=== PATIENT | female | born 1940 | race Caucasian/White ===

== ENCOUNTER 2020-02-06 17:39 | Inpatient (IN) | payer MEDICARE, OTHER ==
[~2020-02-06] VITALS: Ht 162.6 cm; Wt 51.7 kg
--- NOTE | 2020-02-06 19:10 | NUR ---
GPS RN-NOTE:ADMISSION ADMITTED A 79-YR OLD FEMALE, FROM [facility]. ADMITTED ON 5150 FOR GD. PER HOLD, PT. CALLED 911 REQUESTED HELP COOKING AND CLEANING AND STATES SHE WAS UNABLE TO PERFORM THOSE TASKS ON HER OWN. PT. STATED SHE HAS NOT EATEN IN OVER 5 DAYS. PT. HAD SOME FOOD, BUT MOST WAS ROTTEN. KITCHEN WAS ALSO DIRTY AND HAD FECES AND MOLDS. UPON FACE TO FACE ASSESSMENT, PATIENT IS A/OX3, LABILE MOOD, ANXIOUS AND EASILY GETS IRRITABLE. AMBULATORY WITH ASSISTANCE. PT WAS ADVISED OF THE HOLD. PT'S RIGHTS HANDBOOK AND A GUIDE TO PRESCRIPTION MEDICATIONS GIVEN. IN NO APPARENT DISTRESS NOTED. BELONGINGS WERE INVENTORIED AND CHECKED FOR CONTRABAND. PT. IS UNDER THE PSYCHIATRIC CARE OF DR. BENIGNO BUSTOS, AND UNDER THE MEDICAL CARE OF CARMEN ROPER. SKIN BODY ASSESSMENT DONE. PT DENIES PAIN/ DISCOMFORT AT THIS TIME. BED LOCKED AND PLACED IN LOWEST POSITION TO MAINTAIN SAFETY. FALL PRECAUTIONS IMPLEMENTED. WILL CONTINUE TO MONITOR Q15 MINS. FOR SAFETY AND BEHAVIOR. Addendum: 02/07/20 at 0337 by JOSE MIGUEL CHEN RN PATIENT NOTED WITH HARD OF HEARING ON LEFT EAR. PT HAS NO HEARING AID. Addendum: 02/07/20 at 0519 by JOSE MIGUEL CHEN RN PT REFUSED TO TAKE OFF HER RINGS ON HER RIGHT FINGER. DESPITE OF EXPLANATION PROVIDED. Addendum: 02/07/20 at 0542 by JOSE MIGUEL CHEN RN RINGS KEPT BY THE PT.
[2020-02-06 20:00] VITALS: BP 94/61
[2020-02-06] MEDS ORDERED: DILT360C28 PO (20:25)
[2020-02-06] MEDS ORDERED: ATOR80TA PO (20:25)
[2020-02-06] MEDS ORDERED: MIRT30TA PO (20:25)
[2020-02-06] MEDS ORDERED: APIX5TAB PO (20:25)
[2020-02-06] MEDS ORDERED: LIDO30AD10 TP (20:25)
[2020-02-06] MEDS ORDERED: QUET25TA PO (20:25)
[2020-02-06] MEDS ORDERED: MAGNESIUM HYDROXIDE 30 ML UDC PO PRN (20:30)
[2020-02-06] MEDS ORDERED: MAG HYDROX/AL HYDROX/SIMETH 30 ML UDC PO PRN (20:30)
[2020-02-06] MEDS ORDERED: BLOOD SUGAR DIAGNOSTIC 1 EACH STRIP IN ONE (20:30)
[2020-02-06] MEDS ORDERED: CIPR-262 PO (20:34)
[2020-02-06] MEDS: ACETAMINOPHEN 325 MG TABLET PO PRN (20:36)
--- NOTE | 2020-02-06 20:36 | NUR ---
GPS-RN NOTE: PATIENT C/O LOWER BACK PAIN ON A PAIN SCALE OF 3/10. ADMINISTERED TYLENOL 650MG PO ORDERED PER PT'S REQUEST. WILL CONTINUE TO MONITOR FOR THE EFFECTIVENESS.
[2020-02-06 21:22] VITALS: BP 94/61
[2020-02-06] MEDS ORDERED: MIRTAZAPINE 15 MG TABLET PO STA (21:52)
[2020-02-06] MEDS ORDERED: MIRTAZAPINE 15 MG TABLET PO SCH (22:00)
--- NOTE | 2020-02-06 22:10 | NUR ---
GPS-RN NOTE: SEEN AND EXAMINED BY [employer]MATURE WINDER REPAIR HELPER SAMIR ROPER PATIENT'S BUMPED ON HER RIGHT UPPER LEG WITH NO NEW ORDER AT THIS TIME.
--- NOTE | 2020-02-06 23:15 | NUR ---
GPS-RN NOTE: NON-ADMINISTRATION OF REMERON DOSE AT 2200. REMERON 15MG PO GIVEN ONE TIME DOSE.
[2020-02-06] MEDS ORDERED: QUETIAPINE FUMARATE 25 MG TABLET PO SCH (23:30)
[2020-02-07 01:11] VITALS: BP 110/68
[2020-02-07] MEDS: LORAZEPAM 0.5 MG TABLET PO PRN ×3 (01:17→22:24)
[2020-02-07] MEDS ORDERED: Z GUARD REMEDY 2 OZ OINT TP PRN (02:30)
[2020-02-07 08:00] VITALS: BP 137/64
[2020-02-07] MEDS: LEVETIRACETAM (250 MG) 250 MG TABLET PO SCH ×4 (08:25→21:34)
[2020-02-07] MEDS: DILTIAZEM HCL CD 180 MG PO SCH (08:26)
[2020-02-07] MEDS: CIPROFLOXACIN HCL 500 MG TABLET PO SCH (08:26)
[2020-02-07] MEDS: APIXABAN 5 MG TABLET PO SCH ×3 (08:27→17:00)
[2020-02-07] MEDS: ACETAMINOPHEN 325 MG TABLET PO PRN ×2 (08:31→20:09)
[2020-02-07] MEDS: LIDOCAINE 5% (PATCH) 1 EA PATCH TP SCH (08:32)
--- NOTE | 2020-02-07 08:32 | NUR ---
RN NOTE:PATIENT C/O LOWER BACK PAIN ON A PAIN SCALE OF 5/10. ADMINISTERED TYLENOL 650MG PO ORDERED PER PT'S REQUEST. WILL CONTINUE TO MONITOR .
--- NOTE | 2020-02-07 13:38 | NUR ---
APS: RYAN received a call from [facility] APS director of social services Mynor Savanna [phone] informing SW pt has a current open case and is requesting discharge information. RYAN informed him that pt was just admitted and her case has not been discussed with MD so at this time there is no information to provide. RYAN stated that she would follow up once pt has been seen by both and RYAN.
--- NOTE | 2020-02-07 13:48 | NUR ---
RN NOTE:PATIENT C/O ANXIETY MEDICATED WITH ATIVAN 0.5MG PO X1,WILL CONTINUE TO MONITOR .
[2020-02-07 16:00] VITALS: BP 106/75
[2020-02-07 17:16] LABS: CHOLESTEROL 134 mg/dL (<200); HDL CHOLESTEROL 63 mg/dL (40-60); LDL 66 mg/dL (0-99); TRIGLYCERIDES 55 mg/dL (30-150)
[2020-02-07 17:17] LABS: ALBUMIN 3.9 g/dL (3.4-5.0); BILIRUBIN,TOTAL 0.4 mg/dL (0.2-1.0); CALCIUM, SERUM 9.2 mg/dL (8.5-10.1); CREATININE 0.9 mg/dL (0.6-1.3); POTASSIUM 4.1 mmol/L (3.5-5.1); TOTAL PROTEIN, SERUM 7.6 g/dL (6.4-8.2)
[2020-02-07 20:17] VITALS: BP 111/68
[2020-02-07] MEDS: TRAZODONE 50 MG TABLET PO SCH (21:34)
[2020-02-07] MEDS: ATORVASTATIN 40 MG TABLET PO SCH (21:38)
--- NOTE | 2020-02-07 21:50 | NUR ---
GPS-RN NOTE: MEDICATION REFUSAL PATIENT REFUSED SCHEDULED KEPPRA DOSE FOR TONIGHT. EDUCATED PATIENT REGARDING THE IMPORTANCE OF MEDICATION COMPLIANCE. PT CONTINUED TO REFUSE X3. WILL CONTINUE TO MONITOR.
[2020-02-07] MEDS ORDERED: MIRTAZAPINE 15 MG TABLET PO SCH (22:00)
--- NOTE | 2020-02-07 22:24 | NUR ---
GPS-RN NOTE: ANXIETY PATIENT C/O FEELING ANXIOUS. PT. REQUESTED FOR ATIVAN. ADMINISTERED ATIVAN 0.5MG PO ORDERED. WILL CONTINUE TO MONITOR FOR SAFETY.
[2020-02-08 08:00] VITALS: BP 128/71
[2020-02-08] MEDS: LIDOCAINE 5% (PATCH) 1 EA PATCH TP SCH (08:33)
[2020-02-08] MEDS: LEVETIRACETAM (250 MG) 250 MG TABLET PO SCH ×2 (08:35→21:20)
[2020-02-08] MEDS: DILTIAZEM HCL CD 180 MG PO SCH (08:35)
[2020-02-08] MEDS: CIPROFLOXACIN HCL 500 MG TABLET PO SCH (08:35)
[2020-02-08] MEDS: APIXABAN 5 MG TABLET PO SCH ×2 (08:46→16:28)
--- NOTE | 2020-02-08 11:13 | NUR ---
APS: RYAN contacted [facility] APS social work instructor Joey Savanna [phone] to discuss pts discharge plan. RYAN left a voicemail for callback.
--- NOTE | 2020-02-08 11:28 | NUR ---
FAMILY CONTACT: RYAN contacted pts grace Rapp ([phone]) for collateral information and discharge planning. Grace states that pt recently left AMA on 02/02/20 from [facility] Address: [address] [place] [id number] after pt had been there since August 2019 due to a fall and pt being unable to care for herself at home. Grace states that he has been involved with pts care for a year and since December 2019 he no longer makes himself responsible for pts care as pt is noncompliant and he lives in [place] and is unable to attend to pts needs. Grace has requested he not receive calls and only wants a call at the time of discharge. Grace has asked SW to coordinate with [facility] for collateral information and discharge planning. RYAN also informed him that pt has an open case with APS.
[2020-02-08 11:50] LABS: BASOPHILS # (AUTO) 0.1 /CMM (0.0-0.2); BASOPHILS % (AUTO) 1.2 % (0.0-2.0); EOSINOPHILS % (AUTO) 4.2 % (0.0-6.0); HEMATOCRIT 34 % (33-45); HEMOGLOBIN 10.7 g/dL (11.5-14.8); LYMPHOCYTES # (AUTO) 1.1 /CMM (0.8-4.8); LYMPHOCYTES % (AUTO) 22.4 % (20.0-44.0); MEAN CORPUSCULAR HGB CONC 31 g/dl (31.0-36.0); MEAN CORPUSCULAR VOLUME 87 fL (82-100); MONOCYTES # (AUTO) 0.8 /CMM (0.1-1.30); MONOCYTES % (AUTO) 15.6 % (2.0-12.0); NEUTROPHILS # (AUTO) 2.9 /CMM (1.8-8.9); NEUTROPHILS % (AUTO) 56.6 % (43.0-81.0); PLATELET COUNT (AUTO) 178 /CMM (150-450); RED BLOOD CELL COUNT(AUTO) 3.93 MIL/uL (4.0-5.2); WHITE BLOOD COUNT (AUTO) 5.1 K/uL (4.3-11.0)
[2020-02-08 12:26] LABS: CREATININE 0.9 mg/dL (0.6-1.3); PHOSPHORUS 3.7 mg/dL (2.5-4.9); POTASSIUM 4.1 mmol/L (3.5-5.1)
[2020-02-08] MEDS: ACETAMINOPHEN 325 MG TABLET PO PRN ×2 (12:55→20:23)
[2020-02-08 13:04] LABS: THYROID STIMULATING HORMONE 0.013 uIU/mL (0.358-3.74)
--- NOTE | 2020-02-08 13:55 | NUR ---
GROUP NOTE: SW encouraged pt to attend however, pt was unable to attend due to being on the phone speaking to APS.
--- NOTE | 2020-02-08 15:27 | NUR ---
INITIAL DISCHARGE PLAN: Per [facility] clinical social worker Joey Corrales [phone] and pts grace Rapp [phone] pt needs SNF placement and cannot return home as pt cannot care for herself. RYAN will help form a safe and proper discharge in collaboration with .
[2020-02-08 16:00] VITALS: BP 107/59
--- NOTE | 2020-02-08 16:08 | NUR ---
INDIVIDUAL NOTE: Pt is anxious and confused with labile mood. Pt keeps wanting to call various people to come pick her up. When explained by SW that she cannot leave as she is on a hold and cannot return home due to her inability to care for herself pt became agitated and told SW that it was none of her business who she called and also SW did not have the right to decide whether or not she could return home. Pt has impaired insight and judgement.
[2020-02-08] MEDS: LORAZEPAM 0.5 MG TABLET PO PRN (16:41)
--- NOTE | 2020-02-08 16:45 | NUR ---
RN GPS NOTE PATIENT STATED SHE WAS FEELING VERY ANXIOUS AND WANTED AN ATIVAN. ADMINISTERED ATIVAN 0.5MG PRN @1641. WILL CONTINUE TO MONITOR Q15MIN FOR SAFETY AND BEHAVIOR.
[2020-02-08 20:40] VITALS: BP 103/64
[2020-02-08] MEDS: TRAZODONE 50 MG TABLET PO SCH (21:20)
[2020-02-08] MEDS: ATORVASTATIN 40 MG TABLET PO SCH (21:25)
[2020-02-09] MEDS: LORAZEPAM 0.5 MG TABLET PO PRN ×4 (00:32→21:43)
[2020-02-09 08:00] VITALS: BP 114/78
[2020-02-09] MEDS: LEVETIRACETAM (250 MG) 250 MG TABLET PO SCH ×2 (08:51→21:13)
[2020-02-09] MEDS: DILTIAZEM HCL CD 180 MG PO SCH (08:51)
[2020-02-09] MEDS: APIXABAN 5 MG TABLET PO SCH ×2 (08:53→16:41)
[2020-02-09] MEDS: LIDOCAINE 5% (PATCH) 1 EA PATCH TP SCH (08:53)
[2020-02-09] MEDS ORDERED: risperiDONE 0.25 MG TABLET PO SCH (09:00)
[2020-02-09] MEDS: ACETAMINOPHEN 325 MG TABLET PO PRN ×2 (09:52→16:41)
--- NOTE | 2020-02-09 09:55 | NUR ---
GPS RN NOTE UPON CHECKING ON PATIENT SHE STATED "I AM FEELING VERY ANXIOUS AND MY BACK HURTS A LOT. I NEED TYLENOL AND ATIVAN". ADMINISTERED TYLENOL AND ATIVAN @ 0952. WILL REASSESS AND CONTINUE TO MONITOR Q15MIN FOR SAFETY AND BEHAVIOR.
--- NOTE | 2020-02-09 13:45 | NUR ---
RN-CO:Paged Dr Lion to obtain consent for Risperdal.
[2020-02-09 16:00] VITALS: BP 105/68
--- NOTE | 2020-02-09 16:47 | NUR ---
GPS RN NOTE PATIENT STATED "I AM HAVING NECK AND BACK PAIN AND I AM FEELING ANXIOUS. I WANT ATIVAN AND TYLENOL NOW". ADMINISTERED TYLENOL AND ATIVAN 0.5MG TAB PRN @16:41. WILL REASSESS AND MONITOR Q15MIN FOR SAFETY AND BEHAVIOR.
--- NOTE | 2020-02-09 18:25 | NUR ---
RN-CO: Patient was seen and examined by Dr Thomas
[2020-02-09 20:00] VITALS: BP 115/61
[2020-02-09] MEDS: TRAZODONE 50 MG TABLET PO SCH (21:13)
[2020-02-09] MEDS: ATORVASTATIN 40 MG TABLET PO SCH (21:14)
--- NOTE | 2020-02-09 21:43 | NUR ---
GPS RN NOTE: ANXIETY PT. C/O OF BEING ANXIOUS. ADMINISTERED ATIVAN 0.5 MG PO PRN ORDERED. WILL CONTINUE TO MONITOR FOR SAFETY AND BEHAVIOR
[2020-02-10] MEDS: ACETAMINOPHEN 325 MG TABLET PO PRN ×2 (00:36→11:15)
--- NOTE | 2020-02-10 00:36 | NUR ---
GPS RN NOTE: PAIN PT. C/O OF BACK PAIN AND REQUESTED TYLENOL. ADMINISTERED TYLENOL 650 MG PO PRN ORDERED. WILL CONTINUE TO MONITOR FOR SAFETY AND BEHAVIOR
[2020-02-10] MEDS: LORAZEPAM 0.5 MG TABLET PO PRN ×3 (04:53→22:12)
--- NOTE | 2020-02-10 04:53 | NUR ---
GPS RN NOTE: ANXIETY PT. C/O OF BEING ANXIOUS. ADMINISTERED ATIVAN 0.5 MG PO PRN ORDERED. WILL CONTINUE TO MONITOR FOR SAFETY AND BEHAVIOR
[2020-02-10 08:00] VITALS: BP 116/68
[2020-02-10] MEDS: APIXABAN 5 MG TABLET PO SCH ×2 (09:00→16:20)
[2020-02-10] MEDS: LIDOCAINE 5% (PATCH) 1 EA PATCH TP SCH (09:02)
[2020-02-10] MEDS: LEVETIRACETAM (250 MG) 250 MG TABLET PO SCH ×2 (09:03→21:18)
[2020-02-10] MEDS: DILTIAZEM HCL CD 180 MG PO SCH (09:03)
--- NOTE | 2020-02-10 11:16 | NUR ---
GPS RN NOTE: LOWER BACK PAIN PATIENT STATED "MY LOWER BACK HURTS REALLY BAD, I WANT TO GET TYLENOL" PATIENTS STATES PAIN IS A 9/10. ADMINISTERED TYLENOL 650MG @1115, WILL REASSESS AND CONTINUE TO MONITOR Q15 MIN FOR SAFETY AND BEHAVIOR.
--- NOTE | 2020-02-10 13:36 | NUR ---
GPS RN NOTE; ANXIETY PATIENT STATED SHE WAS FEELING ANXIOUS AND NEEDED AN ATIVAN. ASKED PATIENT WHAT CALMING TECHNIQUES HELP HER OTHER THAN MEDICATION AND SHE SAID RESTING. ENCOURAGED HER TO REST WELL ADMINISTERING ATIVAN 0.5MG TAB @ 1334. WILL REASSESS AND CONTINUE TO MONITOR Q15MIN FOR SAFETY AND BEHAVIOR.
--- NOTE | 2020-02-10 15:44 | NUR ---
GROUP NOTE: Pt refused to attend as she states she does not need therapy as she is "fine from my head." SW attempted to engage pt in individual therapy and pt was focused on her discharge home. SW stated that she is unable to care for herself and will have to go to a SNF. Pt became agitated and began posturing and pointing her finger at SW stating that she could not decide for her. Pts insight is impaired and mood is labile.
[2020-02-10 15:50] VITALS: BP 106/62
--- NOTE | 2020-02-10 16:20 | NUR ---
GPS RN NOTE AT 14:10 PATIENT WAS WALKING DOWN HALLWAY ON THE SIDE OF THE SHOWERS AND CONSTRUCTION DRIVER OPENED THE DOOR AND SLIGHTLY BUMPED THE PATIENT AND THEIR WALKER. PATIENT COMPLAINED OF NO PAIN AND A SKIN ASSESSMENT WAS DONE AND NO SIGN ON INJURY WAS NOTED. WILL CONTINUE TO MONITOR SITE AND PATIENT Q15MIN FOR SAFETY AND BEHAVIOR.
[2020-02-10 19:30] VITALS: BP 105/70
[2020-02-10] MEDS: TRAZODONE 50 MG TABLET PO SCH (21:18)
[2020-02-10] MEDS: ATORVASTATIN 40 MG TABLET PO SCH (21:18)
--- NOTE | 2020-02-10 22:13 | NUR ---
GPS RN NOTE: ANXIETY PT. C/O OF BEING ANXIOUS. ADMINISTERED ATIVAN 0.5 MG PO PRN ORDERED. WILL CONTINUE TO MONITOR FOR SAFETY AND BEHAVIOR
[2020-02-11] MEDS: LORAZEPAM 0.5 MG TABLET PO PRN ×3 (06:38→22:04)
--- NOTE | 2020-02-11 06:38 | NUR ---
GPS-RN NOTE: ANXIETY PATIENT C/O FEELING ANXIOUS. PT REQUESTED FOR ATIVAN. V/S STABLE. PRN ATIVAN 0.5MG PO GIVEN. WILL CONTINUE TO MONITOR FOR SAFETY.
[2020-02-11 06:40] VITALS: BP 113/75
[2020-02-11 08:00] VITALS: BP 122/70
[2020-02-11] MEDS: LEVETIRACETAM (250 MG) 250 MG TABLET PO SCH ×2 (08:53→21:08)
[2020-02-11] MEDS: LIDOCAINE 5% (PATCH) 1 EA PATCH TP SCH (08:53)
[2020-02-11] MEDS: DILTIAZEM HCL CD 180 MG PO SCH (08:57)
[2020-02-11] MEDS: APIXABAN 5 MG TABLET PO SCH ×2 (09:00→16:51)
--- NOTE | 2020-02-11 09:00 | NUR ---
RN NOTE- A/O 3 PATIENT IS NEEDY, GUARDED, LABILE MOOD, COOPERATIVE. PATIENT BECOMES AGITATED WHEN SHE DOES NOT RECIEVE WHAT SHE WANTS. MED COMPLAINT, NO SIGNS OF DISTRESS, NO PAIN. WILL CONTINUE TO MONITOR Q15 MIN FOR SAFETY AND BEHAVIOR.
--- NOTE | 2020-02-11 09:04 | NUR ---
SNF REFERRAL: RYAN faxed SNF referral to [facility] ([facility]) [id number] [place] [address] P: [phone].
--- NOTE | 2020-02-11 09:23 | NUR ---
SNF REFERRAL: SW faxed SNF referral to [facility] ([facility]) Address: [address] [place] [address] for review.
--- NOTE | 2020-02-11 09:23 | NUR ---
SNF REFERRAL: RYAN faxed SNF referral to [facility] Address: [address] [facility], [place] [address] for review.
[2020-02-11] MEDS: ACETAMINOPHEN 325 MG TABLET PO PRN (10:32)
--- NOTE | 2020-02-11 10:32 | NUR ---
RN NOTE- PT COMPLAIN OF PAIN 6-10 TYLENOL 650MG GIVEN
--- NOTE | 2020-02-11 10:55 | NUR ---
SNF CONTACT: SW received a call from katelyn Campbell at [facility] ([facility]) Address: [address] [place] [address] stating pt has been accepted to the facility.
--- NOTE | 2020-02-11 10:57 | NUR ---
SNF CONTACT: SW received a call from katelyn Jovel at [facility] Address: [address] [place] [address] stating pt has been accepted to the facility.
--- NOTE | 2020-02-11 11:09 | NUR ---
INDIVIDUAL NOTE: SW provided intervention to pt regarding her discharge, SW informed pt that she will be discharged to a SNF and explained her insurance benefits and coverage. Pt became easily agitated and stated she did not want to go to a SNF. Pt has impaired insight and unable to comprehend the information given to her.
--- NOTE | 2020-02-11 11:39 | NUR ---
SNF REFERRAL: SW faxed SNF referral to [facility] (SNF) Address: [facility] [place] [address] for review.
[2020-02-11] MEDS ORDERED: clonazePAM 0.5 MG TABLET PO SCH (13:00)
--- NOTE | 2020-02-11 14:03 | NUR ---
RN NOTE- ANXIETY/ PT RESTLESS ANXIOUS. ATIVAN 0.5 MG GIVEN
--- NOTE | 2020-02-11 14:46 | NUR ---
SNF CONTACT: SW received a call from katelyn Staley at [facility] ([facility]) Address: [facility] [place] [address] stating pt has been accepted to the facility.
--- NOTE | 2020-02-11 15:30 | NUR ---
RN NOTE- ATTEMPTED COVID TESTING W PATIENT FOR FUTURE PLACEMENT. PT REFUSED TEST STATING "I AM NOT DOING THE STUPID TEST UNTIL I GET TO GO HOME." RYAN LEYVA ATTEMPTED REASONING W PT TO NO AVAIL. COVID TEST REFUSED.
--- NOTE | 2020-02-11 15:32 | NUR ---
INDIVIDUAL INTERVENTION: Pt refused to take COVID test for placement stating, "I'm not taking the test because I am going home." Pts mood is labile and becomes easily agitated. Pt is unable to care for herself and unable to return home.
[2020-02-11 16:00] VITALS: BP 118/68
[2020-02-11] MEDS: clonazePAM 0.5 MG TABLET PO SCH (16:52)
[2020-02-11] MEDS: TRAZODONE 50 MG TABLET PO SCH (21:08)
[2020-02-11] MEDS: ATORVASTATIN 40 MG TABLET PO SCH (21:08)
--- NOTE | 2020-02-11 22:04 | NUR ---
GPS RN NOTE: ANXIETY PT. C/O OF BEING ANXIOUS. ADMINISTERED ATIVAN 0.5 MG PO PRN ORDERED. WILL CONTINUE TO MONITOR FOR SAFETY AND BEHAVIOR.
[2020-02-12 08:00] VITALS: BP 108/72
[2020-02-12] MEDS: LEVETIRACETAM (250 MG) 250 MG TABLET PO SCH ×2 (08:15→21:40)
[2020-02-12] MEDS: LIDOCAINE 5% (PATCH) 1 EA PATCH TP SCH (08:16)
[2020-02-12] MEDS: DILTIAZEM HCL CD 180 MG PO SCH (08:16)
[2020-02-12] MEDS: clonazePAM 0.5 MG TABLET PO SCH (08:34)
--- NOTE | 2020-02-12 08:35 | NUR ---
GPS/RN PT REFUSED ELOQUIS AND KLONOPIN OFFERED X3
[2020-02-12] MEDS: APIXABAN 5 MG TABLET PO SCH ×2 (08:58→17:00)
[2020-02-12] MEDS: LORAZEPAM 0.5 MG TABLET PO PRN ×2 (08:59→16:19)
[2020-02-12 16:00] VITALS: BP 111/68
--- NOTE | 2020-02-12 16:21 | NUR ---
GPS/RN ATIVAN 0.5MG PO ADMINISTERED FOR ANXIETY
[2020-02-12 20:08] VITALS: BP 116/65
[2020-02-12] MEDS: TRAZODONE 50 MG TABLET PO SCH (21:40)
[2020-02-12] MEDS: ATORVASTATIN 40 MG TABLET PO SCH (21:40)
[2020-02-13] MEDS: ACETAMINOPHEN 325 MG TABLET PO PRN ×2 (01:24→17:37)
[2020-02-13] MEDS: LORAZEPAM 0.5 MG TABLET PO PRN ×3 (01:24→19:16)
--- NOTE | 2020-02-13 01:24 | NUR ---
GPS RN NOTE: PAIN PT. C/O OF BACK PAIN AND REQUESTED TYLENOL. ADMINISTERED TYLENOL 650 MG PO PRN ORDERED. WILL CONTINUE TO MONITOR FOR SAFETY AND BEHAVIOR.
--- NOTE | 2020-02-13 01:24 | NUR ---
GPS RN NOTE: ANXIETY PT. C/O OF BEING ANXIOUS. ADMINISTERED ATIVAN 0.5 MG PO PRN ORDERED. WILL CONTINUE TO MONITOR FOR SAFETY AND BEHAVIOR
[2020-02-13 08:00] VITALS: BP 122/72
[2020-02-13] MEDS: APIXABAN 5 MG TABLET PO SCH ×2 (08:37→17:00)
[2020-02-13] MEDS: LEVETIRACETAM (250 MG) 250 MG TABLET PO SCH ×2 (08:43→20:37)
[2020-02-13] MEDS: DILTIAZEM HCL CD 180 MG PO SCH (08:44)
[2020-02-13] MEDS: LIDOCAINE 5% (PATCH) 1 EA PATCH TP SCH (08:44)
[2020-02-13 16:00] VITALS: BP 103/66
--- NOTE | 2020-02-13 19:16 | NUR ---
GPS RN NOTE: ANXIETY PATIENT VERBALIZED THAT SHE IS ANXIOUS, RESTLESS, REQUESTED TO GET ATIVAN AT THIS TIME. PRN ATIVAN 0.5 MG 1 TAB PO GIVEN ORDERED. WILL CONTINUE TO MONITOR FOR EFFECTIVENESS.
[2020-02-13 19:29] VITALS: BP 106/69
[2020-02-13] MEDS: ATORVASTATIN 40 MG TABLET PO SCH (21:57)
[2020-02-13] MEDS: TRAZODONE 50 MG TABLET PO SCH (21:57)
[2020-02-14] MEDS: LORAZEPAM 0.5 MG TABLET PO PRN ×4 (02:35→22:12)
--- NOTE | 2020-02-14 02:35 | NUR ---
GPS RN NOTE: ANXIETY PATIENT VERBALIZED THAT SHE IS FEELING ANXIOUS & RESTLESS & REQUESTED TO TAKE ATIVAN. PRN ATIVAN 0.5 MG GIVEN SCHEDULED. CONTINUING TO MONITOR.
--- NOTE | 2020-02-14 06:52 | NUR ---
GPS RN NOTE PATIENT IS SOUND ASLEEP AT THIS TIME. INDUSTRIAL CLEANING TECHNICIAN HERE TO DRAW BLOOD, BUT PATIENT VERBALIZED EARLIER NOT TO BE BOTHERED IF ASLEEP. INFORMED TYLER, INDUSTRIAL CLEANING TECHNICIAN & REQUESTED TO COME BACK AT 0800. TYLER STATED THAT SHE WILL INFORM AM INDUSTRIAL CLEANING TECHNICIAN TO COME AGAIN TO DRAW BLOOD.
[2020-02-14 08:00] VITALS: BP 119/69
[2020-02-14] MEDS: LIDOCAINE 5% (PATCH) 1 EA PATCH TP SCH (08:09)
[2020-02-14] MEDS: DILTIAZEM HCL CD 180 MG PO SCH (08:11)
[2020-02-14] MEDS: LEVETIRACETAM (250 MG) 250 MG TABLET PO SCH ×2 (08:11→21:12)
[2020-02-14] MEDS: APIXABAN 5 MG TABLET PO SCH ×2 (09:00→17:00)
[2020-02-14] MEDS: ACETAMINOPHEN 325 MG TABLET PO PRN ×2 (09:37→19:53)
--- NOTE | 2020-02-14 09:38 | NUR ---
rn notes refused eliquis. expained risk and benefits but still refused. offered 3x.
--- NOTE | 2020-02-14 10:44 | NUR ---
APS: RYAN contacted [facility] APS social work administrator Joeyyumiko Corrales [phone] to discuss pts discharge plan. SW left a voicemail for callback informing him that pt is refusing placement and refusing to get a COVID test therefore all the facilities she has been accepted to will not accept without a COVID test.
--- NOTE | 2020-02-14 10:48 | NUR ---
rn notes patient anxious and asking for ativan. ativan 0.5mg given as ordered. Addendum: 02/14/20 at 1144 by DINA ALVAREZ ativan 0.5mg fell on the floor. had to waste it. waste witness by EZE Weinstein. Informed Indira Pharmcist, per Indira just pulled out another one and waste the previous one in the omnicell. Addendum: 02/14/20 at 1146 by DINA ALVAREZ pulled new ativan 0.5mg and administered as ordered
--- NOTE | 2020-02-14 11:00 | NUR ---
APS: SW received a call from [facility] APS social service manager Mynor Corrales [phone] stating that he will try to convince pt to take COVID test and accept SNF placement. He states that if pt refuses then APS will move forward with filing for conservatorship.
--- NOTE | 2020-02-14 11:15 | NUR ---
APS: SW received a call from [facility] APS social media community manager Mynor Corrales [phone] requesting SW to re-explain pts SNF options. He states that if pt refuses SNF placement then he will proceed with filing for conservatorship.
--- NOTE | 2020-02-14 11:25 | NUR ---
INDIVIDUAL INTERVENTION: SW wrote a yves for the pt explaining her SNF options and discharge plan as pt is heard of hearing and her insight is limited. the yves reads the following: You have been accepted to 3 nursing homes: 1.[facility] Address: [address] [place] [address] [address] Lion (your current psychiatrist goes to this facility and he will continue to see you there) 2.[facility] Address: [address] [place] [address] 3.[facility] Address: [address] [place] [address] Above are the 3 long term facilities that have accepted you. They all require you to take a COVID test for admission. You will be there for 1 month and Medicare will cover for it. After that a hospital social worker at the facility will work with social nito Cook with Adult Protective Services and they will help you find a permanent home that will provide you with the assistance you need. You cannot return home as you are unable to care for yourself. If you refuse to go to a long term facility then Adult Protective Services will intervene and file for conservatorship which means you will lose all your rights and the [facility] will become your legal guardian and make decisions for you. Please choose what facility who would like to go to.
--- NOTE | 2020-02-14 12:26 | NUR ---
INDIVIDUAL INTERVENTION: SW spoke with pt regarding the SNF options she was given, pt was agitated and stated she will make a decision soon then stated that SW should have not written that she is unable to care for herself. SW stated that she is unable to safely care for herself at home and reminded pt of reason for psychiatric hold and hospitalization. Pt became agitated and began pointing her finger at SW stating that no one can tell her what to do. Pts insight is impaired and has not insight into her mental illness.
[2020-02-14 16:00] VITALS: BP 99/61
--- NOTE | 2020-02-14 17:05 | NUR ---
rn notes refused eliquis. expained risk and benefits but still refused. offered 3x.
--- NOTE | 2020-02-14 19:53 | NUR ---
GPS RN NOTE: HEADACHE PT. C/O OF HEADACHE AND REQUESTED TYLENOL. ADMINISTERED TYLENOL 650 MG PO PRN ORDERED. WILL CONTINUE TO MONITOR FOR SAFETY AND BEHAVIOR
[2020-02-14 20:14] VITALS: BP 107/66
[2020-02-14] MEDS: ATORVASTATIN 40 MG TABLET PO SCH (21:13)
[2020-02-14] MEDS: TRAZODONE 50 MG TABLET PO SCH (21:13)
--- NOTE | 2020-02-14 22:12 | NUR ---
GPS RN NOTE: ANXIETY PT. C/O OF BEING ANXIOUS. ADMINISTERED ATIVAN 0.5 MG PO PRN ORDERED. WILL CONTINUE TO MONITOR FOR SAFETY AND BEHAVIOR
[2020-02-14 23:03] LABS: BASOPHILS # (AUTO) 0.2 /CMM (0.0-0.2); BASOPHILS % (AUTO) 2.4 % (0.0-2.0); EOSINOPHILS % (AUTO) 3.9 % (0.0-6.0); HEMATOCRIT 28 % (33-45); HEMOGLOBIN 8.9 g/dL (11.5-14.8); LYMPHOCYTES # (AUTO) 1.3 /CMM (0.8-4.8); LYMPHOCYTES % (AUTO) 19.9 % (20.0-44.0); MEAN CORPUSCULAR HGB CONC 32 g/dl (31.0-36.0); MEAN CORPUSCULAR VOLUME 85 fL (82-100); MONOCYTES # (AUTO) 0.9 /CMM (0.1-1.30); MONOCYTES % (AUTO) 13.2 % (2.0-12.0); NEUTROPHILS % (AUTO) 60.6 % (43.0-81.0); PLATELET COUNT (AUTO) 126 /CMM (150-450); WHITE BLOOD COUNT (AUTO) 6.5 K/uL (4.3-11.0)
[2020-02-14 23:20] LABS: ALANINE AMINOTRANSFERASE 30 U/L (12-78); ALBUMIN 3.3 g/dL (3.4-5.0); ALKALINE PHOSPHATASE 115 U/L (46-116); ASPARTATE AMINOTRANSFERASE 24 U/L (15-37); BILIRUBIN,TOTAL 0.3 mg/dL (0.2-1.0); CALCIUM, SERUM 8.6 mg/dL (8.5-10.1); CARBON DIOXIDE 27 mmol/L (21-32); CHLORIDE 103 mmol/L (98-107); CREATININE 0.8 mg/dL (0.6-1.3); GLUCOSE 127 mg/dL (74-106); PHOSPHORUS 4.3 mg/dL (2.5-4.9); SODIUM SERUM 136 mmol/L (136-145); TOTAL PROTEIN, SERUM 6.5 g/dL (6.4-8.2); UREA NITROGEN, BLOOD 34 mg/dL (7-18)
[2020-02-15] MEDS: ACETAMINOPHEN 325 MG TABLET PO PRN ×2 (01:41→13:10)
--- NOTE | 2020-02-15 01:41 | NUR ---
GPS RN NOTE: HEADACHE PT. C/O OF HEADACHE AND REQUESTED TYLENOL. ADMINISTERED TYLENOL 650 MG PO PRN ORDERED. WILL CONTINUE TO MONITOR FOR SAFETY AND BEHAVIOR
[2020-02-15] MEDS: LORAZEPAM 0.5 MG TABLET PO PRN ×3 (04:36→23:02)
--- NOTE | 2020-02-15 04:36 | NUR ---
GPS RN NOTE: ANXIETY PT. C/O OF BEING ANXIOUS. ADMINISTERED ATIVAN 0.5 MG PO PRN ORDERED. WILL CONTINUE TO MONITOR FOR SAFETY AND BEHAVIOR
[2020-02-15 08:00] VITALS: BP 121/74
[2020-02-15] MEDS: DILTIAZEM HCL CD 180 MG PO SCH (08:07)
[2020-02-15] MEDS: LIDOCAINE 5% (PATCH) 1 EA PATCH TP SCH (08:08)
[2020-02-15] MEDS: APIXABAN 5 MG TABLET PO SCH ×2 (08:08→16:57)
[2020-02-15] MEDS: LEVETIRACETAM (250 MG) 250 MG TABLET PO SCH ×2 (08:08→21:11)
--- NOTE | 2020-02-15 08:17 | NUR ---
RN NOTE- HGB 8.9, BUN 34. DR CUELLAR NOTIFIED . PUSHING FLUIDS. AWAITING ORDERS
--- NOTE | 2020-02-15 09:00 | NUR ---
RN NOTE- PT QUIET WITHDRAWN IN BED MED COMPLIANT EXCEPT FOR ELIQUIS STATES'MAKES MY GUMS BLEED' CALM DIRECTABLE DENYING SI HI AH VH. BUN [address] CUELLAR NOTIFIED. PUSHING FLUIDS. ENCOURAGING INTAKE
--- NOTE | 2020-02-15 11:00 | NUR ---
INDIVIDUAL INTERVENTION: SW spoke with pt regarding the SNF options she was given, pt was agitated and stated that she will not go to a SNF.
--- NOTE | 2020-02-15 13:09 | NUR ---
APS: RYAN contacted [facility] APS social media editor Joey Corrales [phone] and left a voicemail informing him pt will be discharged tomorrow Friday02/16/20 back home as pt has refused SNF placement. RYAN requested a call back.
--- NOTE | 2020-02-15 13:10 | NUR ---
RN NOTE- PT C/O HEADACHE AND RESTLESSNESS. VS STABLE. HR - 76/M B/P- 136/68. ATIVAN 0.5 MG GIVEN, TYLENOL 650 MG GIVEN
--- NOTE | 2020-02-15 13:51 | NUR ---
RN NOTE- DR CUELLAR TO UNIT. AWARE OF LABS. INCREASE FLUID INTAKE PER ORDERS. ENCOURAGING PT TO DRINK.
--- NOTE | 2020-02-15 15:48 | NUR ---
INDIVIDUAL INTERVENTION: SW discussed placement with pt and pt agreed to take COVID test for placement. Pt states she wishes to be discharged to [facility]. SW informed RN so that COVID screening can be done on this present day.
--- NOTE | 2020-02-15 15:51 | NUR ---
APS: RYAN contacted [facility] APS social human services assistants Joey Corrales [phone] and left a voicemail informing him pt agreed to take COVID test for placement.
--- NOTE | 2020-02-15 15:57 | NUR ---
SNF REFERRAL: RYAN faxed SNF referral to [facility] Address: [address], [place] [address] for review.
[2020-02-15 16:00] VITALS: BP 111/61
--- NOTE | 2020-02-15 16:57 | NUR ---
RN NOTE: PT REFUSED 1700 ELIQUIS DOSE
--- NOTE | 2020-02-15 18:30 | NUR ---
RN NOTE- LAB PHONED UNIT. PTS COVID TEST DONE EARLIER TODAY FOR PLACEMENT WAS NEGATIVE
[2020-02-15 20:07] VITALS: BP 109/67
[2020-02-15] MEDS: ATORVASTATIN 40 MG TABLET PO SCH (21:42)
[2020-02-15] MEDS: TRAZODONE 50 MG TABLET PO SCH (21:43)
--- NOTE | 2020-02-15 23:04 | NUR ---
RN NOTES: ANXIETY PT. C/O FEELING ANXIOUS REQUESTING PRN, ATIVAN 0.5 MG PO PRN GIVEN PER PT. REQUEST , WILL CONTINUE TO MONITOR.
--- NOTE | 2020-02-16 07:30 | NUR ---
RN NOTE- ANXIETY. REQUESTED PRN. ATIVAN 0.5 MG GIVEN
[2020-02-16] MEDS: LORAZEPAM 0.5 MG TABLET PO PRN (07:32)
[2020-02-16 08:00] VITALS: BP 111/58
[2020-02-16] MEDS: LIDOCAINE 5% (PATCH) 1 EA PATCH TP SCH (08:25)
[2020-02-16] MEDS: LEVETIRACETAM (250 MG) 250 MG TABLET PO SCH (08:25)
[2020-02-16 08:26] VITALS: BP 111/58
[2020-02-16] MEDS: APIXABAN 5 MG TABLET PO SCH (08:26)
[2020-02-16] MEDS: DILTIAZEM HCL CD 180 MG PO SCH (08:26)
--- NOTE | 2020-02-16 08:38 | NUR ---
APS: RYAN contacted [facility] APS social sciences professor Joey Savanna [phone] and left a voicemail informing him pt is refusing to be discharged to a SNF. RYAN informed him that pt will be discharged today back home via taxi.
--- NOTE | 2020-02-16 08:42 | NUR ---
APS: RYAN received a call from APS psych social worker Joey Corrales [phone] agreeing with discharge plan. He states he will proceed with filing for conservatorship for pt.
--- NOTE | 2020-02-16 09:00 | NUR ---
RN NOTE- PT OPPOSITIONAL AT TIMES FREQUENT C/O ANXIETY, NOISE, FOOD, HER UPCOMING DC PLACEMENT ETC. ATIVAN GIVEN FOR RESTLESSNESS EARLY IN SHIFT PO INTAKE POOR AT TIMES, INCREASED FLUID INTAKE BUN STILL HIGH. REFUSING ELIQUIS OTHERWISE MED COMPLIANT DENIES ALL
--- NOTE | 2020-02-16 09:14 | NUR ---
INDIVIDUAL INTERVENTION: SW spoke with pt regarding a safe discharge plan, SW explained to pt that she is unable to to care for herself and stated that if she returns home she may lose her rights as APS will pursue conservatorship. After much persuasion pt agreed to go to [facility].
--- NOTE | 2020-02-16 09:16 | NUR ---
APS: RYAN contacted [facility] APS social media editor Joey Corrales [phone] and left a voicemail informing him pt agreed to go to a SNF.
--- NOTE | 2020-02-16 09:31 | NUR ---
DISCHARGE NOTE: Pt will be discharging at 12:30pm via [facility] to [facility] Address: [address] [place] [address] . APS socially responsible investment adviser Joey Corrales [phone] has been notified. Pts mood is anxious with congruent affect. Pt denies visual/auditory hallucinations and denies suicidal/homicidal ideation. Pt will be under the care of Psychiatrist: Dr. Rodriguez Address: [address] [place] [address] and Digital Product Specialist: Dr Diop Address: [address] [place] [address] . The multidisciplinary exit care form was done, printed, signed, and given to the patient.
[2020-02-16] MEDS: ACETAMINOPHEN 325 MG TABLET PO PRN (10:22)
--- NOTE | 2020-02-16 10:22 | NUR ---
RN NOTE- PT C/O PAIN TO BACK. TYLENOL 650 MG GIVEN
--- NOTE | 2020-02-16 13:50 | NUR ---
EXPENSE CLERK NOTE- PT DISCHARGED TO [facility] VIA AMBULANCE AT THIS TIME. PT ALERT ORIENTED TO PERSON PLACE TIME SITUATION. VS STABLE DENIES SI HI AH VH . AFTERCARE AND DC REVIEWED W AMBULANCE STAFF AND PT. VERBALIZED UNDERSTANDING RETURNED. NO SKIN ISSUES TO DOCUMENT. VALUABLES RETURNED TO PT AND SIGNED FOR. ID [id number] REMOVED. ESCORTED OUT OF FACILITY BY STAFF
== END 2020-02-16 13:50 | DRG 881 ==
LOC: GPS 17:39
PROVIDERS: ADMIT Psychiatry & Neurology Psychiatry; ATTEND Nurse Practitioner Acute Care
DX: F32.9 Major depressive disorder, single episode, unspecified (principal); N39.0 Urinary tract infection, site not specified; D68.69 Other thrombophilia; G40.909 Epilepsy, unspecified, not intractable, without status epilepticus; I48.91 Unspecified atrial fibrillation; I10 Essential (primary) hypertension; F41.9 Anxiety disorder, unspecified; G89.29 Other chronic pain; Z87.442 Personal history of urinary calculi; F03.90 Unspecified dementia, unspecified severity, without behavioral disturbance, psychotic disturbance, mood disturbance, and anxiety; D64.9 Anemia, unspecified; E86.0 Dehydration; Z91.14 Patient's other noncompliance with medication regimen; Z73.6 Limitation of activities due to disability
CPT/HCPCS: 36415; 80048-TC; 80053-TC; 80061-TC; 82962-TC; 83735-TC; 84100-TC; 84443-TC; 85025-TC; 87081-TC; 97116-TC; 97530-TC